=== PATIENT | female | born 1965 | race Caucasian/White ===

== ENCOUNTER 2019-03-13 19:44 | Inpatient (IN) ==
--- NOTE | 2019-03-13 19:51 | Emergency Department Note ---
Disposition Clinical Impression: Catatonia schizophrenia Disposition: Admitted As Inpatient Condition: Fair Time of Disposition: 01:22 Psych HPI - General Stated Complaint: ams Time Seen by Provider: 03/13/19 19:51 Source: family Mode of arrival: ambulatory Limitations: altered mental status Nursing Notes Reviewed: Yes Vital Signs Reviewed: Yes - History of Present Illness HPI Narrative: 53-year-old female past medical history of bipolar disorder and schizophrenia, currently on Lamictal, Seroquel, Abilify presenting for a 3 day history of altered mental status. The patient's mother bedside states that the patient flew to [place] on to see her sister and was noted to be having a "panic attack" at the [place] [facility] prior to flying to [place]. It was noted the patient required to be placed in a wheelchair and loaded onto the airplane which is abnormal for her behaviors. Upon returning to [place], the patient was notably altered and was sent to the [facility] ER for further evaluation and management. Psychiatric labs were performed at [facility] and found to be otherwise unremarkable with the exception of ketones in her urine. The patient was given 50 mg of IM Benadryl due to concerns about catatonic dystonia. Upon my initial evaluation, my general impression is that the patient is awake, alert, as she tracks provider around the room and appears to be consciously and actively flexing her muscles in a rigid posture and resisting movement when attempted range of motion. She gives no verbal response to questioning. There are no overt lateralizing signs, the patient is in no acute distress; their skin appears to be normal in color, she is mildly diaphoretic, not pale, not cyanotic. Pt complaint: altered mental status If medical clearance, reason: psychiatric condition Onset (ago): day(s) Duration: getting worse History of similar episodes: No Improves with: none Worsens with: none Context: significant life stressor Alleged intoxication: No Associated Psychiatric Symptoms: other (Catatonia) - Related Data Home Medications Medication Instructions Recorded Confirmed Abilify 20 mg PO DAILY 03/13/19 03/13/19 Abilify Maintena 400 mg IM Q3W 03/13/19 03/13/19 Acyclovir [Zovirax] 400 mg PO DAILY 03/13/19 03/13/19 Fosamax 35 mg PO DAILY 03/13/19 03/13/19 Klonopin 0.5 mg PO HS PRN 03/13/19 03/13/19 Lamictal 200 mg PO BID 03/13/19 03/13/19 Seroquel 500 mg PO HS 03/13/19 03/13/19 Unable To Obtain [Unable to Obtain] 03/13/19 03/13/19 Allergies Allergy/AdvReac Type Severity Reaction Status Date / Time No Known Allergies Allergy Verified 06/12/15 11:04 Review of Systems: Patient is currently catatonic. Mother states that the patient has not communicated to her any pain, she has not vomited, there is been no abnormal bleeding. Limitations: ROS unobtainable due to patients medical condition Past Medical History - Past Medical History Medical history: Reports: no medical history Psychiatric history: Reports: schizophrenia - Social History Smoking Status: Unknown if ever smoked Smokeless Tobacco Status: No Physical Exam Constitutional: No acute distress Neuro: Patient tracks provider around the room, appears to be actively resisting physical exam. Head: Atraumatic, normocephalic Eyes: Pupils equal, round and reactive to light, no scleral icterus, no conjunc tival injection Neck: Trachea midline without deviation. Anterior neck is supple without swelling. *Chest: Symmetric chest wall rise *Heart: Cardiac rate is tachycardic with normal rhythm with S1 and S2 , no S3 or S4 appreciated, no murmurs, gallops, rubs, or clicks. *Lungs: Lungs are clear to auscultation bilaterally, without accessory muscle use or prolonged expiratory phase. No wheezes, rhonchi or stridor appreciated. Abdomen: Abdomen is flexed, otherwise flat, normal bowel sounds. No abdominal bruit auscultated. Non-distended, non-rigid, no organomegaly, no ascites appreciated. No pulsatile mass, no tenderness or guarding to palpation in all four quadrants, no rebound Extremities: Patient actively flexing 4 extremities as well as abdomen, limbs are rigid to movement Psychiatric exam: Patient is catatonic Integumentary:mild diaphoresis , otherwise warm, dry, intact, normal color. No rash, cyanosis, erythema, or pallor - General Limitations: altered mental status General appearance: alert, in no apparent distress Course Course Narrative: Psychiatric evaluation completed at [place] without significant findings. Concern for psychiatric catatonic reaction versus serotonin syndrome. We will add creatine kinase as well as 1 L fluid for patient hydration and furth er evaluation. Patient is otherwise cleared for psychiatric evaluation. Vital Signs Temperature 98.9 F 03/13/19 19:51 Pulse Rate 121 03/13/19 19:51 Respiratory Rate 16 03/13/19 19:51 Blood Pressure 129/73 03/13/19 19:51 O2 Sat by Pulse Oximetry 97 03/13/19 19:51 Temperature 98.8 F 03/14/19 01:19 Pulse Rate 117 03/14/19 01:19 Respiratory Rate 17 03/14/19 01:19 Blood Pressure 160/76 03/14/19 01:19 O2 Sat by Pulse Oximetry 96 03/14/19 01:19 Oxygen Delivery Oxygen Delivery Room Air Psych - MDM Narrative Medical decision making narrative: Patient evaluate by psychiatric services and deemed appropriate for admission. Patient will be admitted to [facility] psychiatric services for further evaluation and management catatonic schizophrenia. Patient's hemodynamics were stable time of admission. - Lab Data Lab Results 03/13/19 Range/Units 20:40 Creatine Kinase 631 H (30-223) Units/L Psychiatric Medical Clearance - Medical Clearance Checklist Medical History: No Social History Section defined Current Vitals: Last Vital Signs Temp 98.8 F 03/14/19 01:19 Pulse 117 03/14/19 01:19 Resp 17 03/14/19 01:19 BP 160/76 03/14/19 01:19 Pulse Ox 96 03/14/19 01:19 Abnormal Labs: Abnormal lab results Creatine Kinase 631 Units/L (30-223) H 03/13/19 20:40 Statement of Medical Clearance: I have evaluated the patient, reviewed diagnostic information, and certify that the patient's medical condition is sufficiently stable that transfer to the psychiatric unit does not pose a significant risk of deterioration.
[2019-03-13] MEDS ORDERED: 0.9 % Sodium Chloride 1,000 ML IVC ONE (20:07)
--- NOTE | 2019-03-13 20:22 | Emergency Department Note ---
Disposition Clinical Impression: Catatonia schizophrenia Disposition: Admitted As Inpatient Condition: Fair Time of Disposition: 00:55 General Adult HPI - General Chief complaint: ED Psychiatric Symptoms Stated complaint: ams Time Seen by Provider: 03/13/19 19:51 Source: family, EMS Nursing Notes Reviewed: Yes Vital Signs Reviewed: Yes - History of Present Illness Pain Scale: 0 - Related Data Home Medications Medication Instructions Recorded Confirmed Abilify 20 mg PO DAILY 03/13/19 03/13/19 Abilify Maintena 400 mg IM Q3W 03/13/19 03/13/19 Acyclovir [Zovirax] 400 mg PO DAILY 03/13/19 03/13/19 Fosamax 35 mg PO DAILY 03/13/19 03/13/19 Klonopin 0.5 mg PO HS PRN 03/13/19 03/13/19 Lamictal 200 mg PO BID 03/13/19 03/13/19 Seroquel 500 mg PO HS 03/13/19 03/13/19 Unable To Obtain [Unable to Obtain] 03/13/19 03/13/19 Allergies Allergy/AdvReac Type Severity Reaction Status Date / Time No Known Allergies Allergy Verified 06/12/15 11:04 Past Medical History - Past Medical History Medical history: Reports: no medical history Psychiatric history: Reports: bipolar, schizophrenia - Social History Smoking Status: Never smoker Smokeless Tobacco Status: No Course Vital Signs Temperature 98.9 F 03/13/19 19:51 Pulse Rate 121 03/13/19 19:51 Respiratory Rate 16 03/13/19 19:51 Blood Pressure 129/73 03/13/19 19:51 O2 Sat by Pulse Oximetry 97 03/13/19 19:51 Temperature 98.9 F 03/13/19 19:51 Pulse Rate 121 03/13/19 19:51 Respiratory Rate 16 03/13/19 19:51 Blood Pressure 129/73 03/13/19 19:51 O2 Sat by Pulse Oximetry 97 03/13/19 19:51 Oxygen Delivery Oxygen Delivery Room Air Medical Decision Making - Medical Records Medical records reviewed: Yes I reviewed the patient's medical records. - Lab Data Lab results reviewed: Yes I reviewed the patient's lab results. Lab Results 03/13/19 Range/Units 20:40 Creatine Kinase 631 H (30-223) Units/L Lab results from her earlier visit at [facility] emergency Department were reviewed. Attestation Statement - Attestation Attestation: I, Sergio Deleon MD, personally evaluated this patient and discussed their management with the resident physician. I reviewed the resident's note and agree with the documented findings, medical decision making, and plan of care. 33-year-old female with psychiatric history in history of schizophrenia presents to the emergency department with mother reporting that she has had intermittent catatonia and not responding since . It has been worse today and has apparently been present all day. Patient was visiting her sister out of town. They brought her home today and brought her to the emergency department for evaluation. She was seen initially at [facility] emergency department and had psychiatric medical clearance. Please refer to Dr. Salgado's note from [facility] for complete details of the history and physical exam. On examination patient is a well-developed well-nourished female in no acute distress. She is alert and follows me around the room with her eyes but does not respond to questions or commands. She does actively resist when I try to move her arms or legs. Breath sounds are clear and equal bilaterally. Heart regular with a moderate tachycardia. Heart rate at time of my exam was counted at 120. Abdomen is soft with normal bowel sounds. She does mumble unintelligible sounds intermittently. Due to patient's tachycardia and she had ketones greater than 160 and her urinalysis we will give her a bolus of IV fluids before consulted psychiatry. I do agree with Dr. Salgado's impression that this is likely a psychiatric issue. [address] psychiatry department was consulted and evaluated patient in the emergency department. After evaluation patient is being admitted to the [address] psychiatric unit.
[2019-03-14] MEDS ORDERED: Mag Hydrox/Al Hydrox/Simeth 30 ML UDC PO PRN (04:22)
[2019-03-14] MEDS ORDERED: *HR* LORazepam 2 MG/ML VIAL IM PRN (04:22)
[2019-03-14] MEDS ORDERED: traZODone 50 MG TABLET PO PRN (04:22)
[2019-03-14] MEDS ORDERED: Ibuprofen 400 MG TABLET PO PRN (04:22)
[2019-03-14] MEDS ORDERED: Haloperidol Lactate 5 MG/ML VIAL IM PRN (04:22)
[2019-03-14] MEDS ORDERED: hydrOXYzine pamoate 25 MG CAPSULE PO PRN (04:22)
[2019-03-14] MEDS ORDERED: MOM Conc 10 ML UD.LIQ PO PRN (04:22)
[2019-03-14] MEDS ORDERED: *HR* LORazepam 1 MG TABLET PO PRN (04:22)
[2019-03-14] MEDS ORDERED: *HR* LORazepam 2 MG/ML VIAL IM ONE (08:14)
[2019-03-14] MEDS ORDERED: Ringers Solution, Lactated 1,000 ML IVC ONE ×2 (08:47→08:49)
[2019-03-14] MEDS ORDERED: Ringers Solution, Lactated 1,000 ML IVC SCH (09:00)
[2019-03-14] MEDS ORDERED: LAMICTAL 200 MG PO SCH (09:00)
[2019-03-14 09:24] VITALS: BP 110/65
[2019-03-14 09:27] LABS: Basophils % 0.3 %; Eosinophils % 0.1 %; Hematocrit 43.6 % (35.3-44.9); Hemoglobin 14.8 g/dL (11.5-15.4); Immature Granulocytes % 0.6 % (0-4); Lymphocytes # 0.9 K/mcL (0.6-4.6); Lymphocytes % 9.7 %; Mean Corpuscular HGB Conc 33.9 g/dL (31.6-35.5); Mean Corpuscular Hemoglobin 33.8 pg (28.0-33.3); Mean Corpuscular Volume 99.5 fL (83.0-100.0); Mean Platelet Volume 9.6 fL (9.4-12.4); Monocytes # 0.6 K/mcL (0.0-1.3); Neutrophils # 7.9 K/mcL (1.6-8.9); Platelet Count 270 K/mcL (140-400); Red Blood Count 4.38 M/mcL (3.82-4.97); Red Cell Distribution Width 12.4 % (11.5-14.5); Segmented Neutrophils % 83.3 %; White Blood Count 9.5 K/mcL (4.3-11.1)
--- NOTE | 2019-03-14 09:40 | Discharge Summary ---
Date of Encounter: 03/14/19 Time of Encounter: 08:00 Diagnosis - Discharge Diagnosis (1) Catatonia schizophrenia Status: Acute Medications - Discharge Medications Acyclovir [Zovirax] 400 mg PO DAILY 03/13/19 [History] Fosamax 35 mg PO DAILY 03/13/19 [History] Allergy/AdvReac Type Severity Reaction Status Date / Time No Known Allergies Allergy Verified 06/12/15 11:04 Results Procedures and tests throughout hospitalization: Completed Lab Orders Category Date Time Status CBC [Complete Blood Count] [HEME] Stat Lab 03/14/19 09:12 Completed CK [Creatine Kinase] Stat Lab 03/13/19 20:40 Completed Provider Date of admission: 03/14/19 00:43 Primary care physician: Jessie Trevino CNP Discharging clinician: Guera Francisco Psychiatry Exam - Constitutional Vitals: Temp Pulse Resp BP Pulse Ox 98 F 122 16 110/65 94 03/14/19 09:00 03/14/19 09:00 03/14/19 09:00 03/14/19 09:00 03/14/19 09:00 General appearance: unkempt - Musculoskeletal Gait: other (In bed) Station: posturing Strength & Tone: rigid - Psychiatric Patient Orientation: Yes Person (Opens her eyes when her name is called) Level of alertness: Responds to painful stimuli Behavior: withdrawn Psychomotor activity: Catatonic Eye Contact: Maintains Eye Contact Mood Description: Other (Catatonic) Patient description of mood: Catatonic Affect description: flat Speech Volume: No speech Speech pattern: non-verbal Language & Vocabulary: limited Thought Process: Disorganized Thought Content: No Suicidal ideation, No Homicidal ideation Attention Span Ability: Unable to Focus, Unable to Sustain Attention Memory Description: Remote Impaired Patient Reliability: Not Reliable Historian Fund of knowledge: Yes average Intelligence Estimate: Average Judgment: Poor Insight: None Hospital Course Hospital course: Ms. Gleason is a 53 year old female who was admitted from [facility] emergency department. She was seen there for catatonic symptoms. She had been hospitalized recently and was started on Abilify maintain in addition to oral Abilify, Seroquel, Lamictal, and Klonopin. She had flown out to [place] to see her sister but apparently had a "panic attack" in the airport and had to be loaded onto a wheelchair to be placed on the plane which according to family in the emergency room is unlike her. She continued to have deterioration while there and her sister drove her back to [place] where family took her to the [facility] emergency room. She has not been eating or drinking. In the emergency room she required a liter of normal saline. Since she has appeared on our unit she continues to be very catatonic. She is not responding to most commands. She does track with her eyes and grimaces with negative stimuli. She has been incontinent of urine but has had very little output. She is refusing to eat or drink. She appears diaphoretic. Her CK is elevated and she is having some rigidity so NMS is in the differential. We contacted internal medicine who came down and saw her and agreed to admit her medically for her severe dehydration. We did give her one dose of IM Ativan 2 mg while down here with little response. We held her other psychiatric medications Time spent discussing smoking cessation with patient: 3 to 10 minutes Does patient wish to continue nicotine replacement upon disc: No (Not applicable) - Time Spent with Patient Total time spent providing and/or coordinating discharge services: 45 Greater than 30 minutes Specific discharge activities: Spoke directly with the hospitalist attending who will be managing her Assessment and Plan - Patient/Caregiver Discharge Instructions Activity: other Diet: regular diet Additional Instructions: Patient is being admitted medically. Encourage continuing Ativan IM or IV a minimum of 2 mg 3 times a day. If her CK continues to rise or she continues to have the significant lead pipe rigidity neuroleptic malignant syndrome must also be on the differential and dantrolene should be considered for this. Psychiatry will continue to follow. - Follow up Plan Follow up with: Jessie Trevino, [employer]PERATOR [Primary Care Provider] - Functional capacity at discharge: bed bound Overall status at discharge: patient is not back to baseline Disposition: Admitted As Inpatient Quality - Multiple Antipsychotics Patient discharged on 2 or more antipsychotic medications: No Procedures - Procedures Procedures: Medication Management, Crisis Stabilization
[2019-03-14 09:44] LABS: Alanine Aminotransferase 22 Units/L (7-52); Albumin 4.7 g/dL (3.5-5.7); Alkaline Phosphatase 96 Units/L (34-104); Aspartate Amino Transferase 29 Units/L (13-39); BUN/Creatinine Ratio 26 (6-26); Bilirubin,Total 1.1 mg/dL (0.3-1.0); Blood Urea Nitrogen 15 mg/dL (6-20); Calcium 9.8 mg/dL (8.6-10.3); Carbon Dioxide 24 mEq/L (23-29); Chloride 104 mEq/L (98-107); Creatine Kinase 651 Units/L (30-223); Globulin 2.3 g/dL (2.4-3.5); Glucose 100 mg/dL (70-105); Osmolality,Calculated 287 (280-300); Potassium 4.5 mEq/L (3.5-5.1); Sodium 138 mEq/L (136-145); eGFR For African Americans > 60 (> 60); eGFR For Non-African Americans > 60 (> 60)
== END 2019-03-14 10:35 | disposition home or self-care (01) | DRG 885 ==
LOC: 1ANU 19:44 → EMEROOARM 19:44 → OBSVTOIN 03-14 00:43 → 1ANU 03-14 04:08
PROVIDERS: ADMIT Psychiatry & Neurology Psychiatry; ATTEND Psychiatry & Neurology Psychiatry

== ENCOUNTER 2019-03-14 08:50 | Observation (INO) ==
[2019-03-14] MEDS ORDERED: Naloxone 0.4 MG/ML INJ IVP PRN (10:11)
--- NOTE | 2019-03-14 10:11 | Internal Med History&Physical ---
Date of Encounter: 03/14/19 Time of Encounter: 10:30 Internal Medicine - H&P: [facility] History of present illness: Ms. Gleason is a 53 year old female with history of schizophrenia who presents a transfer from inpatient psychiatric unit for medical management of dehydration, elevated CK, and rigidity workup. Patient was recently started on Abilify injection along with PO Abilify and Seroquel. She has developed unusual state of health and possible panic attack and so her family took her to [place] ED. Workup showed elevated CK at 600s with ketones in urine. She was in a catatonic state on arrival to [facility] ED. She was given 1 L normal saline. She was transferred to for further management. Upon arrival to the floor there was concern that NMS could be a cause of symptoms since CK was elevated. Evaluation took place at patient bed in . History obtained from staff and from EMR chart. Patient's current physical and mental status limit evaluation. Past Med Surg Social Fam HX - Past Medical History Medical history: no medical history Additional medical history: unknown/ will not respond Psychiatric history: bipolar, schizophrenia - Past Surgical History Additional surgical history: unknown will not respond - Social History Smoking Status: Never smoker Smokeless Tobacco Status: No Internal Medicine - H&P: Meds Acyclovir [Zovirax] 400 mg PO DAILY 03/13/19 [History] Fosamax 35 mg PO DAILY 03/13/19 [History] Allergy/AdvReac Type Severity Reaction Status Date / Time No Known Allergies Allergy Verified 06/12/15 11:04 ROS unobtainable: due to mental status All Systems PM: A 10-system review of systems was performed and is negative for pertinent findings except as documented above in the HPI. - Constitutional Exam: Exam is limited due to patient in a catatonic state and with rigidity with motion. - Head Head exam: Present: atraumatic, normocephalic - Expanded Head Exam Head exam expanded: Absent: abrasion - Eye Eye exam: Present: PERRL, conjuntiva pink, sclera anicteric Pupils: Present: PERRL - ENT ENT exam: Present: mucous membranes dry - Expanded ENT Exam Mouth exam: Present: dry mucosa. Absent: drooling - Neck Neck exam general surgery: Present: supple, trachea midline. Absent: lymphadenopathy Additional comments: There does not appear to be any neck stiffness and patient is able to do passive range of motion. No appearing nuchal rigidity. Neck flexion is easily performed while patient's back is flexed in bed. - Expanded Neck Exam Neck exam: Absent: tenderness, tracheal deviation - Respiratory Respiratory exam: Present: CTAB. Absent: accessory muscle use, rales, rhonchi, wheezes - Cardiovascular Cardiovascular exam: Present: +S1, +S2, systolic murmur, tachycardia. Absent: diastolic murmur, gallop, rubs - Expanded Cardiovascular Exam Type of murmur: Present: systolic Intensity: 4/6 - GI/Abdominal GI/Abdominal exam: Present: normal bowel sounds, soft, no peritoneal signs. Absent: distended, tenderness - Extremities Exam Extremities exam: Present: warm, radial pulses palpable and symmetrical. Absent: calf tenderness, cyanotic, pedal edema - Back Exam Additional comments: Only partially can be assessed due to patient rigidity. - Neurological Exam Neurological exam: Present: alert. Absent: pronater drift, facial droop, speech deficit Additional comments: Neurology exam could not be fully assessed due to inability to cooperate with muscle flexion as well. There is occasional tracking of eye motion, leading to believe that occular motion is in tact. - Expanded Neurological Exam Neurological exam expanded: Present: protecting the airway - Skin Skin exam: Present: diaphoretic, intact. Absent: dry - Assessment and Plan (1) Muscle rigidity Status: Acute Assessment and plan: Symptoms are likely due to catatonia related to schizophrenia. Serotonin syndrome and NMS are possible as well given her new medication changes. There does not appear to be much nuchal rigidity or tenderness to suggest meningitis. She is afebrile but tachycardic. Her blood pressure is normal and she is afebrile, may be less likely NMS. Lab work for today may result in patient other visit in the EMR. Transfer to telemetry floor CBC, BMP, repeat CK level, UA, lactic acid 2 L normal saline bolus LR Ativan 2 mg Q8H and prn catatonia management per Psychiatry. (2) Catatonia schizophrenia Status: Acute Assessment and plan: Management per Psychiatry. Discussed medication management will include 2 mg Ativan IV Q8HR with close monitoring. (3) Dehydration Status: Acute Assessment and plan: Continue IV fluid hydration. (4) Elevated CK Status: Acute Assessment and plan: Secondary to dehydration, continue IV fluid hydration. (5) Tachycardia Status: Acute Assessment and plan: Suspect component of dehydration. Given her presentation of muscle rigidity, serotonin syndrome and NMS are also possible and will be monitored closely. Does not appear to be infectious etiology. - Continue IV fluid hydration - lopressor prn tachycardia - IV Ativan (6) DVT prophylaxis Status: Acute Assessment and plan: Lovenox SQ - Time Spent With Patient Total time spent is greater than 50% in coordination of care (as documented) at patient's floor/unit and/or counseling patient:
[2019-03-14] MEDS ORDERED: *HR* LORazepam 2 MG/ML VIAL IVP PRN (10:17)
[2019-03-14] MEDS ORDERED: Ringers Solution, Lactated 2,000 ML IVC ONE (10:22)
[2019-03-14 10:56] LABS: Magnesium 2.3 mg/dL (1.6-2.6); Phosphorous 2.6 mg/dL (2.7-4.5)
[2019-03-14] MEDS ORDERED: Ringers Solution, Lactated 3,000 ML ONE (11:05)
[2019-03-14] MEDS ORDERED: *HR* Metoprolol 5 MG/5 ML VIAL IVP PRN (12:18)
--- NOTE | 2019-03-14 14:52 | Consult Note ---
Date of Encounter: 03/14/19 Time of Encounter: 13:00 Assessment & Recommendation (1) Catatonia schizophrenia Current visit: No Status: Acute Assessment & Recommendation: Until presented to the ED because of muscle rigidity. She is afebrile with normal lactate no wall nuchal rigidity. Her CK value was elevated at 631 on admission , is 651 right now -she js s/p 1L LR, along with maintenance fluid at 150mls/hr. - Currently on 2 mg Ativan IV every 8 hours -Catatonic behavior seems to have improved since this morning,. She is alert and oriented to person and place but not to time -Will continue to monitor (2) Elevated CK Current visit: No Status: Acute Assessment & Recommendation: He was found to have a CK of 631 on admission . 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 Gleason is a 53 year old female who was admitted from [place] emergency department. She was seen there for catatonic symptoms. She had been hospitalized recently and was started on Abilify maintain in addition to oral Abilify, Seroquel, Lamictal, and Klonopin. She had flown out to [place] to see her sister but apparently had a "panic attack" in the airport and had to be loaded onto a wheelchair to be placed on the plane which according to family in the emergency room is unlike her. She continued to have deterioration while there and her sister drove her back to [place] where family took her to the [place] emergency room. She has not been eating or drinking. In the emergency room she required a liter of normal saline. Since she has appeared on our unit she continues to be very catatonic. She is not responding to most commands. She does track with her eyes and grimaces with negative stimuli. She has been incontinent of urine but has had very little output. She is refusing to eat or drink. She appears diaphoretic. Her CK is elevated and she is having some rigidity so NMS is in the differential. We contacted internal medicine who came down and saw her and agreed to admit her medically for her severe dehydration. We did give her one dose of IM Ativan 2 mg while down here with little response. We held her other psychiatric medications CC: Nasir Mayo MD Past Med Surg Social Fam HX - Past Medical History Medical history: no medical history - Social History Smoking Status: Never smoker Smokeless Tobacco Status: No Medications & Allergies Acyclovir [Zovirax] 400 mg PO DAILY 03/13/19 [History] Fosamax 35 mg PO DAILY 03/13/19 [History] Allergy/AdvReac Type Severity Reaction Status Date / Time No Known Allergies Allergy Verified 06/12/15 11:04 Review of Systems Constitutional: Denies: fever, chills, weakness, weight change Eyes: Denies: eye pain, vision change Ears, Nose, Throat: Denies: ear pain, throat pain, dental pain, hearing loss, congestion Cardiovascular: Denies: chest pain, palpitations, dyspnea on exertion Respiratory: Denies: cough, dyspnea, wheezes Gastrointestinal: Denies: abdominal pain, nausea, vomiting, diarrhea, constipation Genitourinary female: Denies: urgency, dysuria, frequency, abnormal menses, dyspareunia Musculoskeletal: Denies: joint swelling, joint pain Integumentary: Denies: rash, lesions, pruritus Neurological: Denies: headache, weakness, numbness, memory loss Endocrine: Denies: fatigue, heat or cold intolerance Hematologic/Lymphatic: Denies: easy bruising, lymphadenopathy Allergic/Immunologic: Denies: urticaria, itchy eyes Psychiatry Exam - Constitutional Vitals: Temp Pulse Resp BP Pulse Ox 98.4 F 112 17 145/82 99 03/14/19 12:07 03/14/19 12:07 03/14/19 12:07 03/14/19 12:07 03/14/19 12:07 General appearance: age & developmentally appropriate, well-groomed, well- nourished - Musculoskeletal Gait: normal Station: relaxed Strength & Tone: normal for patient - Psychiatric Patient Orientation: Yes Person, No Time, Yes Place Level of alertness: Alert Behavior: calm, cooperative Psychomotor activity: Normal Eye Contact: Maintains Eye Contact Mood Description: Euthymic/stable Affect description: congruent with mood, full range Speech Volume: Normal Speech pattern: normal rate, normal rhythm, normal tone, fluent, spontaneous Language & Vocabulary: consistent with education Thought Process: Linear, Goal Oriented Thought Content: No Suicidal ideation, No Homicidal ideation, No Overt delusions Perceptual Disturbances: No Auditory hallucinations, No Visual hallucinations Attention Span Ability: Capable of Focused Attention Memory Description: Grossly Intact Patient Reliability: Reliable Historian Fund of knowledge: Yes abstraction ability, Yes aware of current events Intelligence Estimate: Average Judgment: Limited Insight: Partial Results - Labs Labs: Laboratory Last Values Phosphorus 2.6 mg/dL (2.7-4.5) L 03/14/19 09:12 Magnesium 2.3 mg/dL (1.6-2.6) 03/14/19 09:12 Consult Discharge Plan - Plan Referrals: NONE,PCP [Primary Care Provider] -
--- NOTE | 2019-03-14 15:28 | Consult Note ---
Date of Encounter: 03/14/19 Time of Encounter: 11:00 Assessment & Recommendation (1) Catatonia schizophrenia Current visit: No Status: Acute Assessment & Recommendation: Patient presented to the ED because of catatonia. Workup in the ED showed a CK at 631 with ketones in the urine Was given 1 L of normal saline in the ED Currently resuscitated with lactated Ringer's maintenance fluid. Catatonia symptoms seems to have improved since morning Patient on Ativan 2mg q8h and PRN Continue to monitor (2) Elevated CK Current visit: No Status: Acute Assessment & Recommendation: likely due to catatonic schizophrenia Patient was initially the ED with CK of 631 Currently being fluid resuscitated History of Present Illness Requesting Physician: Nasir Mayo MD History of present illness: Ms. Gleason is a 53 year old female who was admitted from [place] emergency department. She was seen there for catatonic symptoms. She had been hospitalized recently and was started on Abilify maintain in addition to oral Abilify, Seroquel, Lamictal, and Klonopin. She had flown out to [place] to see her sister but apparently had a "panic attack" in the airport and had to be loaded onto a wheelchair to be placed on the plane which according to family in the emergency room is unlike her. She continued to have deterioration while there and her sister drove her back to [place] where family took her to the [place] emergency room. She has not been eating or drinking. In the emergency room she required a liter of normal saline. Since she has appeared on our unit she continues to be very catatonic. She is not responding to most commands. She does track with her eyes and grimaces with negative stimuli. She has been incontinent of urine but has had very little output. She is refusing to eat or drink. She appears diaphoretic. Her CK is elevated and she is having some rigidity so NMS is in the differential. We contacted internal medicine who came down and saw her and agreed to admit her medically for her severe dehydration. We did give her one dose of IM Ativan 2 mg while down here with little response. We held her other psychiatric medications CC: Nasir Mayo MD Past Med Surg Social Fam HX - Past Medical History Medical history: no medical history - Social History Smoking Status: Never smoker Smokeless Tobacco Status: No Medications & Allergies Acyclovir [Zovirax] 400 mg PO QAM 03/13/19 [History] Alendronate Sodium [Fosamax] 35 mg PO QWEEK #0 03/13/19 [History] Aripiprazole [Abilify Maintena] 400 mg IM Q3W 03/14/19 [History] Etonogestrel [Nexplanon] 68 mg IM ONCE 03/14/19 [History] Melatonin 3 mg PO HS 03/14/19 [History] Quetiapine Fumarate 400 mg PO HS 03/14/19 [History] Quetiapine Fumarate [Seroquel] 50 mg PO HS 03/14/19 [History] clonazePAM [Klonopin] 0.5 mg PO DAILY PRN 03/14/19 [History] lamoTRIgine [Lamotrigine] 200 mg PO BID 03/14/19 [History] Allergy/AdvReac Type Severity Reaction Status Date / Time diphenhydramine AdvReac See Verified 03/14/19 20:53 [From Dawna] Comments Review of Systems Constitutional: Denies: fever, chills, weakness, weight change Eyes: Denies: eye pain, vision change Ears, Nose, Throat: Denies: ear pain, throat pain, dental pain, hearing loss, congestion Cardiovascular: Denies: chest pain, palpitations, dyspnea on exertion Respiratory: Denies: cough, dyspnea, wheezes Gastrointestinal: Denies: abdominal pain, nausea, vomiting, diarrhea, constipation Genitourinary female: Denies: urgency, dysuria, frequency, abnormal menses, dyspareunia Musculoskeletal: Denies: joint swelling, joint pain Integumentary: Denies: rash, lesions, pruritus Neurological: Denies: headache, weakness, numbness, memory loss Endocrine: Denies: fatigue, heat or cold intolerance Hematologic/Lymphatic: Denies: easy bruising, lymphadenopathy Allergic/Immunologic: Denies: urticaria, itchy eyes Psychiatry Exam - Constitutional Vitals: Temp Pulse Resp BP Pulse Ox 98.4 F 112 17 145/82 99 03/14/19 12:07 03/14/19 12:07 03/14/19 12:07 03/14/19 12:07 03/14/19 12:07 General appearance: age & developmentally appropriate, well-groomed, well- nourished - Musculoskeletal Strength & Tone: rigid - Psychiatric Patient Orientation: Yes Person, No Time, Yes Place Level of alertness: Follows commands Behavior: calm, cooperative Psychomotor activity: Catatonic Eye Contact: Maintains Eye Contact Mood Description: Euthymic/stable Affect description: congruent with mood, full range Speech Volume: Normal Speech pattern: normal rate, normal tone, fluent, spontaneous Language & Vocabulary: consistent with education Thought Process: Linear Thought Content: No Suicidal ideation, No Homicidal ideation, No Overt delusions Perceptual Disturbances: No Auditory hallucinations, No Visual hallucinations Attention Span Ability: Capable of Focused Attention Memory Description: Grossly Intact Patient Reliability: Reliable Historian Fund of knowledge: Yes abstraction ability, Yes aware of current events Intelligence Estimate: Average Judgment: Limited Insight: Partial Results - Labs Labs: Laboratory Last Values Phosphorus 2.6 mg/dL (2.7-4.5) L 03/14/19 09:12 Magnesium 2.3 mg/dL (1.6-2.6) 03/14/19 09:12 Consult Discharge Plan - Plan Referrals: NONE,PCP [Primary Care Provider] - - Attending Attestation I examined this patient and my medical decision-making was reviewed with the Resident Physician. I agree with the documented findings, disposition and treatment plan as described except to the extent set forth below. Currenlty appears catatonic. Do not give home lamictal, seroquel, or abilify. Do not give any antipsychotics. Use scheduled Ativan. If rigidity doesn't improve with Ativan, leukocytosis appears, vitals become unstable or CK worsens consider NMS with dantrolene treatment.
[2019-03-14] MEDS: *HR* LORazepam 2 MG/ML VIAL IVP SCH ×2 (16:14→23:59)
[2019-03-15 05:35] LABS: Basophils % 0.3 %; Eosinophils # 0.1 K/mcL (0.0-0.6); Eosinophils % 1.3 %; Hematocrit 40.6 % (35.3-44.9); Hemoglobin 13.8 g/dL (11.5-15.4); Immature Granulocytes % 0.5 % (0-4); Lymphocytes # 1.9 K/mcL (0.6-4.6); Lymphocytes % 25.8 %; Mean Corpuscular Hemoglobin 34.2 pg (28.0-33.3); Mean Corpuscular Volume 100.7 fL (83.0-100.0); Mean Platelet Volume 9.7 fL (9.4-12.4); Monocytes # 0.7 K/mcL (0.0-1.3); Monocytes % 9.1 %; Neutrophils # 4.7 K/mcL (1.6-8.9); Platelet Count 244 K/mcL (140-400); Red Blood Count 4.03 M/mcL (3.82-4.97); Red Cell Distribution Width 12.4 % (11.5-14.5); White Blood Count 7.4 K/mcL (4.3-11.1)
[2019-03-15 05:44] LABS: BUN/Creatinine Ratio 14 (6-26); Blood Urea Nitrogen 8 mg/dL (6-20); Calcium 9.2 mg/dL (8.6-10.3); Carbon Dioxide 29 mEq/L (23-29); Chloride 101 mEq/L (98-107); Creatine Kinase 714 Units/L (30-223); Glucose 108 mg/dL (70-105); Osmolality,Calculated 281 (280-300); Potassium 3.7 mEq/L (3.5-5.1); Sodium 136 mEq/L (136-145); eGFR For African Americans > 60 (> 60); eGFR For Non-African Americans > 60 (> 60)
[2019-03-15] MEDS ORDERED: Ringers Solution, Lactated 1,000 ML IVC SCH (08:45)
[2019-03-15] MEDS: *HR* LORazepam 2 MG/ML VIAL IVP SCH ×2 (09:56→17:28)
--- NOTE | 2019-03-15 14:21 | Psychiatry Progress Note ---
Date of Encounter: 03/15/19 Time of Encounter: 13:00 Subjective Interval history: patient seen and examined at the bedside. She denies any acute distress. Her catatonia symptoms seems to have improved than yesterday. No evidence of psychosis or delirium. Results - Vital Signs Vital Signs: Temp Pulse Resp BP Pulse Ox 98.2 F 91 16 118/74 96 03/15/19 11:13 03/15/19 11:13 03/15/19 11:13 03/15/19 11:13 03/15/19 11:13 - Labs Labs: Laboratory Results - last 24 hr 03/15/19 03/15/19 04:36 04:36 WBC 7.4 RBC 4.03 Hgb 13.8 Hct 40.6 MCV 100.7 H MCH 34.2 H MCHC 34.0 RDW 12.4 Plt Count 244 MPV 9.7 Immature Gran % 0.5 Seg Neutrophils % 63.0 Lymphocytes % 25.8 Monocytes % 9.1 Eosinophils % 1.3 Basophils % 0.3 Neutrophils # 4.7 Lymphocytes # 1.9 Monocytes # 0.7 Eosinophils # 0.1 Basophils # 0.0 Sodium 136 Potassium 3.7 Chloride 101 Carbon Dioxide 29 BUN 8 Creatinine 0.58 L Est GFR ( Amer) > 60 Est GFR (Non-Af Amer) > 60 BUN/Creatinine Ratio 14 Glucose 108 H Calculated Osmolality 281 Calcium 9.2 Creatine Kinase 714 H Assessment and Plan (1) Catatonia schizophrenia Current visit: Yes Status: Acute Additional Plan: Patient presented to the ED because of catatonia. Workup in the ED showed a CK at 631 with ketones in the urine Was given 1 L of normal saline in the ED Currently resuscitated with lactated Ringer's maintenance fluid. Catatonia symptoms seems to have improved since morning Patient on Ativan 2mg q8h and PRN PLAN: -Recommend tapering off on the Ativan from 2mg q8h to 1.5 mg q8h. - will hold off on antipsychotics. patient can be admitted to the [facility] once medically cleared by the hospitalist service (2) Elevated CK Current visit: Yes Status: Acute Additional Plan: ikely due to catatonic schizophrenia Patient was initially the ED with CK of 631, msot recent is 714. Currently being fluid resuscitated Consult Discharge Plan - Plan Referrals: NONE,PCP [Primary Care Provider] - - Attending Attestation I examined this patient and my medical decision-making was reviewed with the Resident Physician. I agree with the documented findings, disposition and treatment plan as described except to the extent set forth below. Taper Ativan by 0.5mg Q 8hrs every day. We will take her back on 1A once she is medically stable. Thank you very much for your help in managing this patient. Psychiatry Exam - Constitutional Vitals: Temp Pulse Resp BP Pulse Ox 98.2 F 91 16 118/74 96 03/15/19 11:13 03/15/19 11:13 03/15/19 11:13 03/15/19 11:13 03/15/19 11:13 General appearance: age & developmentally appropriate, well-groomed, well- nourished - Musculoskeletal Gait: normal Station: relaxed Strength & Tone: normal for patient - Psychiatric Patient Orientation: Yes Person, Yes Time, Yes Place Level of alertness: Alert Behavior: calm, cooperative Psychomotor activity: Normal Eye Contact: Maintains Eye Contact Mood Description: Euthymic/stable Affect description: congruent with mood, full range Speech Volume: Normal Speech pattern: normal rate, normal rhythm, normal tone, fluent, spontaneous Language & Vocabulary: consistent with education Thought Process: Linear, Goal Oriented Thought Content: No Suicidal ideation, No Homicidal ideation, No Overt delusions Perceptual Disturbances: No Auditory hallucinations, No Visual hallucinations Attention Span Ability: Capable of Focused Attention Memory Description: Grossly Intact Patient Reliability: Reliable Historian Fund of knowledge: Yes abstraction ability, Yes aware of current events Intelligence Estimate: Average Judgment: Limited Insight: Partial
[2019-03-15] MEDS ORDERED: *HR* LORazepam 2 MG/ML VIAL IVP PRN (14:27)
--- NOTE | 2019-03-15 15:43 | Internal Med Progress Note ---
Hospitalist Progress Note - Encounter Date of Encounter: 03/15/19 Time of Encounter: 13:00 - Subjective Interval History: Denies any significant muscle ache. Reports feeling much better overall. Tachycardia resolved, denies any chest pain or palpitation. - Exam Vitals: Temp Pulse Resp BP Pulse Ox 98.2 F 91 16 118/74 96 03/15/19 11:13 03/15/19 11:13 03/15/19 11:13 03/15/19 11:13 03/15/19 11:13 Exam: General: Alert and oriented, not in acute distress. Cardiovascular:Normal S1 & S2, No JVD. Pulse regular. Lungs: clear to auscultation, no wheezes/rales Abdomen:Soft, non-tender, no rigidity. Extremities:No deformity or swelling. No muscle tenderness Neurological: Non-focal Psych: Appropriate - Assessment and Plan (1) Catatonia schizophrenia Current Visit: Yes Status: Acute Assessment and Plan: Management with ativan per psych, antipsychotics on hold (2) Elevated CK Current Visit: Yes Status: Acute Assessment and Plan: most likely due to the above but was brought to the medical floor as NMS was in the differential CPK largely unchanged despite IVF but pt clinically improved will increase the rate of mIVF and monitor if CPK < 500, may be able to be discharged back to [facility] tomorrow (3) DVT prophylaxis Current Visit: No Status: Acute Assessment and Plan: pt is ambulatory, EPCD - Time Spent with Patient Total time spent is greater than 50% in coordination of care (as documented) at patient's floor/unit and/or counseling patient: 25 - 35 minutes Plan of Care Discussed with: nurse (discussed with psych as well) Internal Medicine: Result - Labs CBC & Chem 7: 03/15/19 04:36 03/15/19 04:36 Labs: Short CBC 03/15/19 Range/Units 04:36 WBC 7.4 (4.3-11.1) K/mcL Hgb 13.8 (11.5-15.4) g/dL Hct 40.6 (35.3-44.9) % Plt Count 244 (140-400) K/mcL Neutrophils # 4.7 (1.6-8.9) K/mcL BMP 03/15/19 04:36 Sodium 136 Potassium 3.7 Chloride 101 Carbon Dioxide 29 BUN 8 Creatinine 0.58 L Glucose 108 H Calcium 9.2 Consult Discharge Plan - Plan Referrals: NONE,PCP [Primary Care Provider] -
[2019-03-15] MEDS: Ringers Solution, Lactated 1,000 ML IVC SCH (17:51)
[2019-03-15] MEDS ORDERED: Melatonin 3 MG TABLET PO SCH (21:00)
[2019-03-16] MEDS: *HR* LORazepam 2 MG/ML VIAL IVP SCH ×2 (01:29→09:40)
[2019-03-16] MEDS: Ringers Solution, Lactated 1,000 ML IVC SCH ×3 (01:31→06:01)
[2019-03-16 06:22] LABS: BUN/Creatinine Ratio 15 (6-26); Blood Urea Nitrogen 8 mg/dL (6-20); Calcium 9.3 mg/dL (8.6-10.3); Carbon Dioxide 28 mEq/L (23-29); Chloride 103 mEq/L (98-107); Creatine Kinase 482 Units/L (30-223); Glucose 99 mg/dL (70-105); Osmolality,Calculated 280 (280-300); Potassium 3.9 mEq/L (3.5-5.1); Sodium 136 mEq/L (136-145); eGFR For African Americans > 60 (> 60); eGFR For Non-African Americans > 60 (> 60)
[2019-03-16 08:13] LABS: Bilirubin,Urine Negative (Negative); Blood,Urine Negative (Negative); Clarity,Urine Clear (Clear); Color,Urine Yellow (Yellow); Glucose,Urine (UA) Normal (Normal); Ketones,Urine Negative (Negative); Leukocyte Esterase,Urine Negative (Negative); Nitrite,Urine Negative (Negative); PH,Urine 7.5 pH Units (5.0-8.0); Protein,Urine Negative (Neg-Trace); Urobilinogen,Urine Normal (Normal)
[2019-03-16] MEDS ORDERED: Acyclovir 200 MG CAPSULE PO SCH (09:00)
--- NOTE | 2019-03-16 10:31 | Discharge Summary ---
Date of Encounter: 03/16/19 Time of Encounter: 10:28 - Discharge Diagnosis (1) Catatonia schizophrenia Priority: Primary Status: Acute (2) Elevated CK Priority: Primary Status: Acute Hospital course: Ms. Gleason is a 53 year old female with past medical history of schizophrenia was transferred from psychiatric unit due to elevated CPK and dehydration. Patient was recently started on Abilify and Seroquel. She was transferred with concern for NMS. Patient had muscle rigidity on admission thought likely due to catatonic schizophrenia. She was started on IV fluids for elevated CPK. Psychiatric consult was obtained and she was kept on IV Ativan while her home psychiatric medications were held. Patient has been stable for past 2 days without any psychosis or catatonia. CPK improved with IV fluids. Patient able to tolerate by mouth fluids and food. Patient is stable to be discharged to inpatient psychiatric facility. We will defer to psychiatrist to resume her psychiatric medications. Discharge discussed with: patient, nurse - Time Spent with Patient Total time spent providing and/or coordinating discharge services: Time spent: Greater than 30 minutes (35) - Discharge Medications Prescriptions: Continued Acyclovir [Zovirax] 400 mg PO QAM Alendronate Sodium [Fosamax] 35 mg PO QWEEK #0 Etonogestrel [Nexplanon] 68 mg IM ONCE Melatonin 3 mg PO HS Discontinued clonazePAM [Klonopin] 0.5 mg PO DAILY PRN PRN Reason: Anxiety Aripiprazole [Abilify Maintena] 400 mg IM Q3W lamoTRIgine [Lamotrigine] 200 mg PO BID Quetiapine Fumarate [Seroquel] 50 mg PO HS Quetiapine Fumarate 400 mg PO HS Home Medications: Acyclovir [Zovirax] 400 mg PO QAM 03/13/19 [History] Alendronate Sodium [Fosamax] 35 mg PO QWEEK #0 03/13/19 [History] Etonogestrel [Nexplanon] 68 mg IM ONCE 03/14/19 [History] Melatonin 3 mg PO HS 03/14/19 [History] Allergies/Adverse Reactions: Allergy/AdvReac Type Severity Reaction Status Date / Time diphenhydramine AdvReac See Verified 03/14/19 20:53 [From Benadryl] Comments Date of admission: 03/14/19 11:10 Primary care physician: PCP NONE Consults: 03/15/19 12:26 Consult to Psychiatry [CONS] Routine Consulting Provider: [facility] Reason consult: Other Other reason and/or additional details: catatonia Discharging clinician: Benton Clarke - Constitutional Vitals: Temp Pulse Resp BP Pulse Ox 98.5 F 86 16 137/79 99 03/16/19 07:12 03/16/19 07:12 03/16/19 07:12 03/16/19 07:12 03/16/19 07:12 Exam: General: In no acute distress. Respiratory exam: CTAB. no accessory muscle use, rales, rhonchi, wheezes Cardiovascular exam: RRR, +S1, +S2. no murmur, gallop, rubs. GI/Abdominal exam: Non-tender, Non-distended, normal bowel sounds, soft, no peritoneal signs. Extremities exam: no pedal edema, pulses palpable in b/l lower extremities. no calf tenderness Neurological exam: CN II-XII intact, AO X3, no focal deficits. Skin exam: No skin rash - Patient Status Disposition: Transfer Psychiatric Hosp Condition: Fair - Discharge Instructions Follow Up With: NONE,PCP [Primary Care Provider] -
[2019-03-16 12:30] VITALS: BP 112/69
== END 2019-03-16 14:30 ==
LOC: 2ANU → SUATTDRO 11:10
PROVIDERS: ADMIT Student in an Organized Health Care Education/Training Program; ATTEND Internal Medicine

== ENCOUNTER 2019-03-16 15:09 | Inpatient (IN) ==
[2019-03-16] MEDS ORDERED: NON-FORMULARY MEDICATION 1 EACH EACH (Alendronate Sodium [Fosamax] 35 MG) PO SCH (17:30)
[2019-03-16] MEDS ORDERED: Etonogestrel 68 MG IMPLANT IL SCH (17:30)
[2019-03-16] MEDS ORDERED: *HR* LORazepam 1 MG TABLET PO PRN (17:33)
[2019-03-16] MEDS ORDERED: hydrOXYzine pamoate 25 MG CAPSULE PO PRN (17:33)
[2019-03-16] MEDS ORDERED: Mag Hydrox/Al Hydrox/Simeth 30 ML UDC PO PRN (17:33)
[2019-03-16] MEDS ORDERED: Haloperidol Lactate 5 MG/ML VIAL IM PRN (17:33)
[2019-03-16] MEDS ORDERED: traZODone 50 MG TABLET PO PRN (17:33)
[2019-03-16] MEDS ORDERED: Acetaminophen 325 MG TABLET PO PRN (17:33)
[2019-03-16] MEDS ORDERED: MOM Conc 10 ML UD.LIQ PO PRN (17:33)
[2019-03-16] MEDS ORDERED: *HR* LORazepam 2 MG/ML VIAL IM PRN (17:33)
[2019-03-16] MEDS: *HR* LORazepam 1 MG TABLET PO SCH ×2 (18:39→21:20)
[2019-03-16] MEDS: Melatonin 3 MG TABLET PO SCH (21:20)
[2019-03-17] MEDS: Acyclovir 200 MG CAPSULE PO SCH (08:36)
[2019-03-17] MEDS: *HR* LORazepam 1 MG TABLET PO SCH ×3 (10:02→21:42)
--- NOTE | 2019-03-17 11:11 | Psychiatry History & Physical ---
Date of Encounter: 03/17/19 Time of Encounter: 09:00 History of Present Illness Patient Stated Chief Complaint: catatonia Medicare Admission Attestation: For traditional Medicare patients the provided hospital inpatient services are reasonable and necessary and in the case of services not specified as inpatient-only under 42 CFR 419.22 (n), that they are appropriately provided as inpatient services in accordance 42 CFR 412.3. For Critical Access Hospital the patient may reasonably be expected to be discharged or transferred to a hospital within 96 hours after admission to the Critical Access Hospital. Admitted From: Intrahospital Transfer Plans for Post Hospital Care: Home History of Present Illness: Ms. Gleason is a 53 year old female patient initially presented to the emergency room on March 14 for catatonic symptoms. She had traveled to [place] to see her sister and had a panic attack in the emergency room on the way there she had to be escorted by wheelchair onto the plane. Her mental status continued to deteriorate while she was in [place] and eventually she became unresponsive and her sister drove her back to [place] when she was brought to the emergency room. She was initially admitted to but she was acutely dehydrated and had elevated CK and had lead pipe rigidity. There was concern of NMS. She was transferred medically and started on scheduled Ativan as well as and her psychiatric medications were held. She improved greatly and she has since been transferred back to the psychiatric unit. Today she is somewhat distressed about the fact that she cannot recall large periods of time. She is no longer having acute catatonic symptoms though she does have some mild thought blocking. She reports depression with sad mood, decreased interest, feelings of guilt and worthlessness to staff. He has been tearful and anxious. Past Med Surg Social Fam HX - Past Medical History Medical history: diabetes - Past Psychiatric History Psychiatric history: Reports: schizophrenia, previous psychiatric hospitalization. Denies: prior suicide attempt Past psychiatric history details: She has no prior history of suicide attempts. She is. See been diagnosed with schizoaffective disorder. She has had several psychiatric hospitalizations in the past. She was on Seroquel 500 at night Lamictal 200 twice a day Abilify maintenance injection which originally thought was a new medication however she says she has been on this for years as well as Abilify 20 mg at night and Klonopin 0.5 mg at bedtime when necessary anxiety. She says her medications have not recently been changed. Family psychiatric history: No Family History of Suicide: None - Past Surgical History Surgical History: no surgical history - Social History Smoking Status: Never smoker Smokeless Tobacco Status: No Alcohol use: none Drug use: none Medications & Allergies Acyclovir [Zovirax] 400 mg PO QAM 03/13/19 [History] Alendronate Sodium [Fosamax] 35 mg PO QWEEK #0 03/13/19 [History] Etonogestrel [Nexplanon] 68 mg IM ONCE 03/14/19 [History] Melatonin 3 mg PO HS 03/14/19 [History] Allergy/AdvReac Type Severity Reaction Status Date / Time diphenhydramine AdvReac See Verified 03/14/19 20:53 [From Dawna] Comments Review of Systems Constitutional: Reports: chills Eyes: Denies: eye pain Ears, Nose, Throat: Denies: ear pain Cardiovascular: Denies: chest pain Respiratory: Denies: cough Gastrointestinal: Denies: abdominal pain Genitourinary female: Denies: urgency Musculoskeletal: Reports: joint pain Integumentary: Denies: rash Neurological: Reports: confusion, memory loss Psychiatric: Reports: depression, anxiety, suicidal ideation, auditory hallucinations. Denies: homicidal ideation, visual hallucinations Endocrine: Reports: fatigue Hematologic/Lymphatic: Denies: easy bleeding Allergic/Immunologic: Denies: facial swelling Exam - HEENT Head exam IM: Present: atraumatic Eye exam IM: Present: EOMI ENT exam IM: Present: mucous membranes moist - Neurological Neurological exam: Present: CN II-XII intact (Grossly) - Respiratory Respiratory exam IM: Absent: respiratory distress - GI/Abdominal GI/Abdominal exam IM: Present: no peritoneal signs - Extremities Extremities exam IM: Present: full ROM - Skin Skin exam IM: Absent: abrasion - Constitutional Vitals: Temp Pulse Resp BP Pulse Ox 98.3 F 112 14 100/57 95 03/17/19 08:36 03/17/19 08:36 03/17/19 08:36 03/17/19 08:36 03/17/19 08:36 General appearance: age & developmentally appropriate - Musculoskeletal Gait: slow Station: stooped Strength & Tone: normal for patient - Psychiatric Patient Orientation: Yes Person, Yes Time, Yes Place, Yes Circumstance Level of alertness: Alert Behavior: cooperative, nervous Psychomotor activity: Slowed Eye Contact: Minimal Contact Mood Description: Depressed, Anxious Patient description of mood: Worried Affect description: blunted Speech Volume: Soft/Quiet Speech pattern: slowed Language & Vocabulary: consistent with education Thought Process: Thought Blocking Thought Content: No Suicidal ideation, No Homicidal ideation, Yes Paranoid delusion Perceptual Disturbances: Yes Auditory hallucinations Attention Span Ability: Capable of Focused Attention Memory Description: Grossly Intact Patient Reliability: Reliable Historian Fund of knowledge: Yes abstraction ability Intelligence Estimate: Average Judgment: Limited Insight: Minimal Results - Drug Levels and Toxicology Drug Levels and Toxicology: Lab Results 03/17/19 Range/Units 09:27 POC Glucose 191 H (70-99) mg/dL - Labs Labs: Laboratory Last Values POC Glucose 191 mg/dL (70-99) H 03/17/19 09:27 Assessment and Plan (1) Catatonia schizophrenia Current visit: No Status: Acute Plan: Admit inpatient for safety and stabilization, Close observation, Suicide Precautions per unit protocol, Encourage participation in unit milieu, Group Therapy, Monitor sleep, Monitor appetite Additional Plan: Patient has been titrated down to Ativan 1 mg 3 times a day. We will continue to titrate this down to 0.5 3 times a day. I will begin restarting some of her home psychiatric medications that she is starting to become more depressed and t earful without them. I will restart the Lamictal to 200 twice a day as she has only been off this for a few doses. I will restart the Seroquel more slowly at 200 at bedtime to try not to precipitate another catatonic episode. I will hold off on the oral Abilify for now. She still has the Abilify maintain on board. Encourage group attendance. Therapist to work on discharge planning. Risks, benefits, side effects, alternatives discussed w/pt: Yes Patient agreeable to treatment: Yes Plans for Post Hospital Care: Home Estimated Length of Stay (Days): 5
[2019-03-17 14:29] LABS: Basophils % 0.2 %; Eosinophils % 0.5 %; Hematocrit 41.9 % (35.3-44.9); Hemoglobin 14.9 g/dL (11.5-15.4); Immature Granulocytes % 0.5 % (0-4); Lymphocytes # 1.4 K/mcL (0.6-4.6); Mean Corpuscular HGB Conc 35.6 g/dL (31.6-35.5); Mean Corpuscular Hemoglobin 34.1 pg (28.0-33.3); Mean Corpuscular Volume 95.9 fL (83.0-100.0); Mean Platelet Volume 9.7 fL (9.4-12.4); Monocytes # 0.7 K/mcL (0.0-1.3); Monocytes % 7.6 %; Neutrophils # 6.4 K/mcL (1.6-8.9); Platelet Count 265 K/mcL (140-400); Red Blood Count 4.37 M/mcL (3.82-4.97); Red Cell Distribution Width 12.2 % (11.5-14.5); Segmented Neutrophils % 75.2 %; White Blood Count 8.5 K/mcL (4.3-11.1)
[2019-03-17 14:50] LABS: Alanine Aminotransferase 27 Units/L (7-52); Albumin 4.5 g/dL (3.5-5.7); Albumin/Globulin Ratio 1.8 (1.1-2.2); Alkaline Phosphatase 87 Units/L (34-104); Aspartate Amino Transferase 24 Units/L (13-39); BUN/Creatinine Ratio 21 (6-26); Bilirubin,Total 0.7 mg/dL (0.3-1.0); Blood Urea Nitrogen 12 mg/dL (6-20); Calcium 9.8 mg/dL (8.6-10.3); Carbon Dioxide 30 mEq/L (23-29); Chloride 98 mEq/L (98-107); Chol/HDL Ratio 2.3 (0-4.9); Cholesterol 180 mg/dL (< 200); Globulin 2.5 g/dL (2.4-3.5); Glucose 142 mg/dL (70-105); HDL Cholesterol 79 mg/dL (40-59); LDL Cholesterol,Calculated 88 mg/dL (0-99); Osmolality,Calculated 278 (280-300); Potassium 3.9 mEq/L (3.5-5.1); Sodium 133 mEq/L (136-145); Triglycerides 65 mg/dL (< 150); eGFR For African Americans > 60 (> 60); eGFR For Non-African Americans > 60 (> 60)
[2019-03-17 15:02] LABS: Thyroid Stimulating Hormone 1.259 mcIU/mL (0.340-5.600)
[2019-03-17 15:04] LABS: Estimated Average Glucose 103 mg/dl
[2019-03-17] MEDS: Melatonin 3 MG TABLET PO SCH (21:42)
[2019-03-17] MEDS: lamoTRIgine 100 MG TABLET PO SCH (22:23)
[2019-03-18] MEDS: *HR* LORazepam 1 MG TABLET PO SCH ×3 (10:50→21:16)
[2019-03-18] MEDS: lamoTRIgine 100 MG TABLET PO SCH ×2 (10:51→21:53)
[2019-03-18] MEDS: Acyclovir 200 MG CAPSULE PO SCH (10:51)
--- NOTE | 2019-03-18 10:54 | Psychiatry Progress Note ---
Date of Encounter: 03/18/19 Time of Encounter: 10:20 Subjective Interval history: Patient reports she is feeling better. She has tolerated getting back on Lamictal and the Seroquel. No side effects. No return of stiffness or confusion. She continues to have some mild auditory hallucinations as well as some paranoia and anxiety. She is particularly anxious about the days of memory she has lost. She says that she is somewhat down but no suicidal ideations. She has attended some groups. Review of Systems Psychiatric: Reports: depression, anxiety, auditory hallucinations. Denies: homicidal ideation, visual hallucinations Results - Vital Signs Vital Signs: Temp Pulse Resp BP Pulse Ox 98.2 F 93 18 124/81 96 03/17/19 20:42 03/17/19 20:42 03/17/19 20:42 03/17/19 20:42 03/17/19 20:42 - Labs Labs: Laboratory Results - last 24 hr 03/17/19 03/17/19 03/17/19 12:22 12:22 12:22 WBC 8.5 RBC 4.37 Hgb 14.9 Hct 41.9 MCV 95.9 MCH 34.1 H MCHC 35.6 H RDW 12.2 Plt Count 265 MPV 9.7 Immature Gran % 0.5 Seg Neutrophils % 75.2 Lymphocytes % 16.0 Monocytes % 7.6 Eosinophils % 0.5 Basophils % 0.2 Neutrophils # 6.4 Lymphocytes # 1.4 Monocytes # 0.7 Eosinophils # 0.0 Basophils # 0.0 Sodium 133 L Potassium 3.9 Chloride 98 Carbon Dioxide 30 H BUN 12 Creatinine 0.57 L Est GFR ( Amer) > 60 Est GFR (Non-Af Amer) > 60 BUN/Creatinine Ratio 21 Glucose 142 H Est Mean Plasma Glucose Hemoglobin A1c Calculated Osmolality 278 L Calcium 9.8 Total Bilirubin 0.7 AST 24 ALT 27 Alkaline Phosphatase 87 Serum Total Protein 7.0 Albumin 4.5 Globulin 2.5 Albumin/Globulin Ratio 1.8 Triglycerides 65 Cholesterol 180 LDL Cholesterol, Calc 88 VLDL Cholesterol, Calc 13 HDL Cholesterol 79 H Cholesterol/HDL Ratio 2.3 TSH 1.259 T.pallidum Ab Interpret Negative 03/17/19 14:11 WBC RBC Hgb Hct MCV MCH MCHC RDW Plt Count MPV Immature Gran % Seg Neutrophils % Lymphocytes % Monocytes % Eosinophils % Basophils % Neutrophils # Lymphocytes # Monocytes # Eosinophils # Basophils # Sodium Potassium Chloride Carbon Dioxide BUN Creatinine Est GFR ( Amer) Est GFR (Non-Af Amer) BUN/Creatinine Ratio Glucose Est Mean Plasma Glucose 103 Hemoglobin A1c 5.2 Calculated Osmolality Calcium Total Bilirubin AST ALT Alkaline Phosphatase Serum Total Protein Albumin Globulin Albumin/Globulin Ratio Triglycerides Cholesterol LDL Cholesterol, Calc VLDL Cholesterol, Calc HDL Cholesterol Cholesterol/HDL Ratio TSH T.pallidum Ab Interpret Assessment and Plan (1) Catatonia schizophrenia Current visit: No Status: Acute Plan: Continue hospitalization, Close observation, Suicide Precautions per unit protocol, Encourage participation in unit milieu, Group Therapy, Monitor sleep, Monitor appetite Additional Plan: Increase Seroquel back to her home dose of 500 mg daily at bedtime. Continue Ativan at 0.5 mg 3 times a day. Encourage group attendance. Will see how she does with this and consider if I am going to restart her oral Abilify or not. Risks, benefits, side effects, alternatives discussed w/pt: Yes Patient agreeable to treatment: Yes Consult Discharge Plan - Plan Referrals: [facility] [Outside] Psychiatry Exam - Constitutional Vitals: Temp Pulse Resp BP Pulse Ox 98.2 F 93 18 124/81 96 03/17/19 20:42 03/17/19 20:42 03/17/19 20:42 03/17/19 20:42 03/17/19 20:42 General appearance: disheveled - Musculoskeletal Gait: slow Station: stooped Strength & Tone: normal for patient - Psychiatric Patient Orientation: Yes Person, Yes Time, Yes Place, Yes Circumstance Level of alertness: Alert Behavior: guarded Psychomotor activity: Slowed Eye Contact: Minimal Contact Mood Description: Depressed, Anxious Patient description of mood: Worried Affect description: tearful, anxious Speech Volume: Soft/Quiet Speech pattern: slowed Language & Vocabulary: consistent with education Thought Process: Slowed Thinking Thought Content: No Suicidal ideation, No Homicidal ideation, No Overt delusions Perceptual Disturbances: Yes Auditory hallucinations, No Visual hallucinations Attention Span Ability: Capable of Focused Attention Memory Description: Grossly Intact Patient Reliability: Reliable Historian Fund of knowledge: Yes abstraction ability, Yes aware of current events Intelligence Estimate: Average Judgment: Limited Insight: Minimal
[2019-03-18] MEDS: Melatonin 3 MG TABLET PO SCH (21:17)
--- NOTE | 2019-03-19 09:03 | Psychiatry Progress Note ---
Date of Encounter: 03/19/19 Time of Encounter: 08:20 Subjective Interval history: Patient reports she is more optimistic. She still is really dwelling on the days that she cannot remember and becomes tearful every time she talks about this. She tolerated the increase of her Seroquel back to her home dose without any reoccurrence of stiffness or catatonia. She appears somewhat watchful on the unit. She has been able to talk more about her past history and that no medications were changed prior to her coming in that she been on her current dose of medications for quite some time however she did not eat well and was in the heat so this may have contributed. Additionally she was able to discuss that her past diagnosis is always been bipolar disorder and never schizophrenia. Review of Systems Psychiatric: Reports: depression, anxiety. Denies: homicidal ideation, visual hallucinations Results - Vital Signs Vital Signs: Temp Pulse Resp BP Pulse Ox 98.4 F 101 20 121/78 98 03/18/19 21:00 03/18/19 21:00 03/18/19 21:00 03/18/19 21:00 03/18/19 21:00 Assessment and Plan (1) Bipolar I disorder with catatonia Current visit: Yes Status: Acute Plan: Continue hospitalization, Close observation, Suicide Precautions per unit protocol, Encourage participation in unit milieu, Group Therapy, Monitor sleep, Monitor appetite Additional Plan: Patient's diagnosis changed to bipolar disorder with catatonia based on her deejay ng now able to tell us about her past history and the symptoms she has had in the past as well as past diagnoses. We will continue her current medications. We will see how she does tomorrow and then make a decision about re-adding the Abilify oral or not. We will likely look at Thursday for discharge and she is willing to stay at her parents house for a bit. Risks, benefits, side effects, alternatives discussed w/pt: Yes Patient agreeable to treatment: Yes Consult Discharge Plan - Plan [facility] [Outside] Psychiatry Exam - Constitutional Vitals: Temp Pulse Resp BP Pulse Ox 98.4 F 101 20 121/78 98 03/18/19 21:00 03/18/19 21:00 03/18/19 21:00 03/18/19 21:00 03/18/19 21:00 General appearance: age & developmentally appropriate, obese - Musculoskeletal Gait: slow Station: stooped Strength & Tone: mild weakness - Psychiatric Patient Orientation: Yes Person, Yes Time, Yes Place, Yes Circumstance Level of alertness: Alert Behavior: nervous Psychomotor activity: Slowed Eye Contact: Minimal Contact Mood Description: Anxious Patient description of mood: Worried Affect description: congruent with mood Speech Volume: Soft/Quiet Speech pattern: slowed Language & Vocabulary: consistent with education Thought Process: Perseveration Thought Content: No Suicidal ideation, No Homicidal ideation, Yes Paranoid delusion Perceptual Disturbances: No Auditory hallucinations, No Visual hallucinations Attention Span Ability: Capable of Focused Attention Memory Description: Grossly Intact Patient Reliability: Reliable Historian Fund of knowledge: Yes abstraction ability, Yes aware of current events Intelligence Estimate: Average Judgment: Fair Insight: Partial
[2019-03-19] MEDS: lamoTRIgine 100 MG TABLET PO SCH ×2 (10:18→21:06)
[2019-03-19] MEDS: Acyclovir 200 MG CAPSULE PO SCH (10:18)
[2019-03-19] MEDS: *HR* LORazepam 1 MG TABLET PO SCH ×3 (10:18→21:13)
[2019-03-19] MEDS: Melatonin 3 MG TABLET PO SCH (21:05)
--- NOTE | 2019-03-20 09:58 | Psychiatry Progress Note ---
Date of Encounter: 03/20/19 Time of Encounter: 09:00 Subjective Interval history: Patient is doing very well. She is very future oriented. No suicidal or homicidal thoughts. She is doing well back on all of her medications with the exception of the oral Abilify. I did talk with her about holding this medication for now but that she and her outpatient doctor can work to see if this needs to be readmitted in the future but given that she has IM long acting Abilify on board she can continue just that and the Seroquel and Lamictal. She has some mild anxiety about going home particularly because she recently found out there was a picture on Facebook of her being held down in the wheelchair at the airport but she is positive about this and plans to work with her outpatient team regarding it. Review of Systems Psychiatric: Reports: anxiety. Denies: homicidal ideation, visual hallucinations Results - Vital Signs Vital Signs: Temp Pulse Resp BP Pulse Ox 98.7 F 111 20 124/64 99 03/19/19 21:00 03/19/19 21:00 03/19/19 21:00 03/19/19 21:00 03/19/19 21:00 Assessment and Plan (1) Bipolar I disorder with catatonia Current visit: Yes Status: Acute Plan: Continue hospitalization, Close observation, Suicide Precautions per unit protocol, Encourage participation in unit milieu, Group Therapy, Monitor sleep, Monitor appetite Additional Plan: She should be ready for discharge tomorrow. I will further titrate down her Ativan to 0.5 twice a day today. And then she can likely be discharged with just 0.5 at at bedtime. Continue other medications. Risks, benefits, side effects, alternatives discussed w/pt: Yes Patient agreeable to treatment: Yes Consult Discharge Plan - Plan Additional Instructions: Mrs. Gleason is back on all of her home medications with the exception of the oral Abilify. At this time she and I have discussed holding off on restarting this until she sees her outpatient provider and they can see if she really needs it. She seems to be doing well right now with the long-acting intramuscular Abilify she has on board, the Seroquel, the Lamictal, and the Ativan so it is possible she will not need to be restarted on this however if she does have any worsening of her mood, depression, or psychosis she and her outpatient provider can work on slowly restarting this. [facility]errals: [facility] [facility]Outside] [facility] [Outside] Psychiatry Exam - Constitutional Vitals: Temp Pulse Resp BP Pulse Ox 98.7 F 111 20 124/64 99 03/19/19 21:00 03/19/19 21:00 03/19/19 21:00 03/19/19 21:00 03/19/19 21:00 General appearance: age & developmentally appropriate, well-groomed - Musculoskeletal Gait: normal Station: relaxed Strength & Tone: normal for patient - Psychiatric Patient Orientation: Yes Person, Yes Time, Yes Place, Yes Circumstance Level of alertness: Alert, Other Behavior: calm, cooperative Psychomotor activity: Normal Eye Contact: Maintains Eye Contact Mood Description: Euthymic/stable, Anxious Patient description of mood: I am a little worried because their pictures of me on [employer]. Affect description: congruent with mood, full range Speech Volume: Normal Speech pattern: normal rate, normal rhythm, normal tone, fluent, spontaneous Language & Vocabulary: consistent with education Thought Process: Linear, Goal Oriented Thought Content: No Suicidal ideation, No Homicidal ideation, No Overt delusions Perceptual Disturbances: No Auditory hallucinations, No Visual hallucinations Attention Span Ability: Capable of Focused Attention Memory Description: Grossly Intact Patient Reliability: Reliable Historian Fund of knowledge: Yes abstraction ability, Yes aware of current events Intelligence Estimate: Average Judgment: Good Insight: Full
[2019-03-20] MEDS: *HR* LORazepam 1 MG TABLET PO SCH ×4 (10:06→21:30)
[2019-03-20] MEDS: Acyclovir 200 MG CAPSULE PO SCH (10:07)
[2019-03-20] MEDS: lamoTRIgine 100 MG TABLET PO SCH ×2 (10:07→21:31)
[2019-03-20] MEDS: Melatonin 3 MG TABLET PO SCH (21:31)
[2019-03-21] MEDS: *HR* LORazepam 1 MG TABLET PO SCH (08:41)
[2019-03-21] MEDS: lamoTRIgine 100 MG TABLET PO SCH (08:41)
[2019-03-21] MEDS: Acyclovir 200 MG CAPSULE PO SCH (08:41)
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
[2019-03-21 12:08] VITALS: BP 107/68
== END 2019-03-21 12:59 | disposition home or self-care (01) | DRG 885 ==
LOC: 1ANU 15:09 → SUATTDRO 15:09 → INTOOBSV 15:09
PROVIDERS: ADMIT Psychiatry & Neurology Psychiatry; ATTEND Psychiatry & Neurology Psychiatry

== ENCOUNTER 2020-02-04 22:48 | Inpatient (IN) ==
[2020-02-04 23:50] LABS: Bilirubin,Urine Negative (Negative); Blood,Urine Moderate (Negative); Clarity,Urine Clear (Clear); Color,Urine Colorless (Yellow); Glucose,Urine (UA) Normal (Normal); Ketones,Urine Negative (Negative); Leukocyte Esterase,Urine Negative (Negative); Nitrite,Urine Negative (Negative); PH,Urine 6.5 pH Units (5.0-8.0); Protein,Urine Negative (Neg-Trace); RBC,Urine 0-3 per hpf (0-3); Specific Gravity,Urine 1.005 (1.010-1.025); Squamous Epithelial Cell,Urine Few per hpf (None-Few); Urobilinogen,Urine Normal (Normal); WBC,Urine 0-3 per hpf (0-3)
[2020-02-05 00:01] LABS: Amphetamine Screen,Urine Negative ng/mL (Cutoff=1000); Barbiturate Screen,Urine Negative ng/mL (Cutoff=200); Benzodiazepines Screen,Urine Positive ng/mL (Cutoff=200); Cannabinoid Screen,Urine Negative ng/mL (Cutoff = 50); Cocaine Screen,Urine Negative ng/mL (Cutoff= 300); Opiate Screen,Urine Negative ng/mL (Cutoff=300); Phencyclidine Screen,Urine Negative ng/mL (Cutoff=25)
[2020-02-05 00:20] LABS: Basophils % 0.2 %; Eosinophils % 0.1 %; Hematocrit 35.5 % (35.3-44.9); Hemoglobin 12.1 g/dL (11.5-15.4); Immature Granulocytes % 0.3 % (0-4); Lymphocytes # 2.1 K/mcL (0.6-4.6); Lymphocytes % 23.1 %; Mean Corpuscular HGB Conc 34.1 g/dL (31.6-35.5); Mean Corpuscular Hemoglobin 33.4 pg (28.0-33.3); Mean Corpuscular Volume 98.1 fL (83.0-100.0); Mean Platelet Volume 9.8 fL (9.4-12.4); Monocytes # 0.9 K/mcL (0.0-1.3); Monocytes % 10.2 %; Platelet Count 225 K/mcL (140-400); Red Blood Count 3.62 M/mcL (3.82-4.97); Red Cell Distribution Width 12.2 % (11.5-14.5); Segmented Neutrophils % 66.1 %; White Blood Count 9.1 K/mcL (4.3-11.1)
[2020-02-05 00:25] LABS: Acetaminophen < 10 mcg/mL (10-20); BUN/Creatinine Ratio 18 (6-26); Blood Urea Nitrogen 11 mg/dL (6-20); Calcium 9.4 mg/dL (8.6-10.3); Carbon Dioxide 26 mEq/L (23-29); Chloride 100 mEq/L (98-107); Ethanol < 10 mg/dL (Less than 10); Glucose 115 mg/dL (70-105); Osmolality,Calculated 280 (280-300); Potassium 3.5 mEq/L (3.5-5.1); Salicylate < 2.5 mg/dL (15.0-30.0); Sodium 135 mEq/L (136-145); eGFR For African Americans > 60 (> 60); eGFR For Non-African Americans > 60 (> 60)
[2020-02-05] MEDS ORDERED: Mag Hydrox/Al Hydrox/Simeth 30 ML UDC PO PRN (02:16)
[2020-02-05] MEDS ORDERED: Haloperidol Lactate 5 MG/ML VIAL IM PRN (02:16)
[2020-02-05] MEDS ORDERED: hydrOXYzine pamoate 25 MG CAPSULE PO PRN (02:16)
[2020-02-05] MEDS ORDERED: *HR* LORazepam 2 MG/ML VIAL IM PRN (02:16)
[2020-02-05] MEDS ORDERED: MOM Conc 10 ML UD.LIQ PO PRN (02:16)
[2020-02-05] MEDS: QUEtiapine Fumarate 25 MG TABLET PO PRN ×2 (02:32→03:41)
[2020-02-05] MEDS: *HR* LORazepam 1 MG TABLET PO PRN (03:40)
[2020-02-05] MEDS: haloperidoL 5 MG TABLET PO PRN (03:41)
[2020-02-05] MEDS: lamoTRIgine 100 MG TABLET PO SCH ×2 (10:24→20:12)
[2020-02-05] MEDS: *HR* LORazepam 0.5 MG TABLET PO SCH ×3 (10:25→20:12)
[2020-02-05] MEDS: Acyclovir 200 MG CAPSULE PO SCH (10:33)
[2020-02-05] MEDS: Melatonin 3 MG TABLET PO SCH (20:12)
[2020-02-05] MEDS ORDERED: QUEtiapine Fumarate 100 MG TABLET PO SCH ×2 (21:00)
[2020-02-05] MEDS ORDERED: QUEtiapine Fumarate 25 MG TABLET PO SCH (21:00)
[2020-02-06] MEDS: lamoTRIgine 100 MG TABLET PO SCH ×2 (08:40→21:17)
[2020-02-06] MEDS: Acyclovir 200 MG CAPSULE PO SCH (08:41)
[2020-02-06] MEDS: *HR* LORazepam 0.5 MG TABLET PO SCH ×3 (08:41→21:17)
[2020-02-06] MEDS: *HR* LORazepam 1 MG TABLET PO PRN ×3 (10:11→23:50)
[2020-02-06] MEDS: haloperidoL 5 MG TABLET PO PRN ×3 (10:11→23:50)
[2020-02-06] MEDS: Acetaminophen 325 MG TABLET PO PRN ×2 (15:43→21:19)
[2020-02-06] MEDS: QUEtiapine Fumarate 300 MG TABLET PO SCH (21:17)
[2020-02-06] MEDS: Melatonin 3 MG TABLET PO SCH (21:17)
[2020-02-07] MEDS: *HR* LORazepam 0.5 MG TABLET PO SCH ×3 (08:51→20:42)
[2020-02-07] MEDS: Acyclovir 200 MG CAPSULE PO SCH (08:51)
[2020-02-07] MEDS: lamoTRIgine 100 MG TABLET PO SCH ×2 (08:51→20:42)
[2020-02-07] MEDS: Acetaminophen 325 MG TABLET PO PRN (08:53)
[2020-02-07] MEDS: QUEtiapine Fumarate 300 MG TABLET PO SCH (20:43)
[2020-02-07] MEDS: Melatonin 3 MG TABLET PO SCH (20:43)
[2020-02-07] MEDS: haloperidoL 5 MG TABLET PO PRN (23:15)
[2020-02-07] MEDS: *HR* LORazepam 1 MG TABLET PO PRN (23:15)
[2020-02-08 08:22] VITALS: BP 114/62
[2020-02-08] MEDS: Acyclovir 200 MG CAPSULE PO SCH (08:33)
[2020-02-08] MEDS: *HR* LORazepam 0.5 MG TABLET PO SCH ×2 (08:33→14:59)
[2020-02-08] MEDS: lamoTRIgine 100 MG TABLET PO SCH (08:33)
[2020-02-08] MEDS: Acetaminophen 325 MG TABLET PO PRN (10:28)
[2020-02-08] MEDS ORDERED: QUEtiapine Fumarate 25 MG TABLET PO SCH (21:00)
[2020-02-08] MEDS ORDERED: QUEtiapine Fumarate 100 MG TABLET PO SCH (21:00)
[2020-02-08] MEDS ORDERED: QUEtiapine Fumarate 300 MG TABLET PO SCH (21:00)
== END 2020-02-08 16:05 | disposition home or self-care (01) | DRG 885 ==
LOC: EMEROOARM 22:48 → SUATTDRO 02-05 02:11 → 1ANU 02-05 02:11
PROVIDERS: ADMIT Psychiatry & Neurology Psychiatry; ATTEND Psychiatry & Neurology Psychiatry

== ENCOUNTER 2021-11-02 15:41 | Inpatient (IN) ==
[2021-11-02] MEDS ORDERED: 0.9 % Sodium Chloride 1,000 ML IVC SCH (18:15)
[2021-11-02] MEDS ORDERED: Naloxone 0.4 MG/ML INJ IVP PRN (19:16)
[2021-11-02] MEDS ORDERED: *HR* LORazepam 0.5 MG TABLET PO PRN (20:53)
[2021-11-02] MEDS ORDERED: QUEtiapine Fumarate 100 MG TABLET PO SCH (21:00)
[2021-11-02] MEDS ORDERED: lamoTRIgine 100 MG TABLET PO SCH (21:00)
[2021-11-02] MEDS: Melatonin 3 MG TABLET PO PRN (22:03)
[2021-11-02] MEDS: Sodium Bicarbonate 50 MEQ in 0.45 % Sodium Chloride 1,000 ML IVC SCH (22:03)
[2021-11-03 02:23] LABS: Basophils % 0.1 %; Eosinophils % 0.4 %; Hematocrit 37.9 % (35.3-44.9); Hemoglobin 13.6 g/dL (11.5-15.4); Immature Granulocytes % 0.3 % (0-4); Lymphocytes # 2.5 K/mcL (0.6-4.6); Lymphocytes % 24.2 %; Mean Corpuscular HGB Conc 35.9 g/dL (31.6-35.5); Mean Corpuscular Hemoglobin 35.2 pg (28.0-33.3); Mean Corpuscular Volume 98.2 fL (83.0-100.0); Mean Platelet Volume 10.2 fL (9.4-12.4); Monocytes # 0.8 K/mcL (0.0-1.3); Neutrophils # 6.8 K/mcL (1.6-8.9); Platelet Count 167 K/mcL (140-400); Red Blood Count 3.86 M/mcL (3.82-4.97); Red Cell Distribution Width 12.6 % (11.5-14.5); White Blood Count 10.1 K/mcL (4.3-11.1)
[2021-11-03 02:41] LABS: Alanine Aminotransferase 134 Units/L (7-52); Albumin 3.6 g/dL (3.5-5.7); Alkaline Phosphatase 64 Units/L (34-104); Aspartate Amino Transferase 407 Units/L (13-39); BUN/Creatinine Ratio 25 (6-26); Blood Urea Nitrogen 17 mg/dL (6-20); Calcium 8.4 mg/dL (8.6-10.3); Carbon Dioxide 25 mEq/L (23-29); Chloride 102 mEq/L (98-107); Globulin 1.8 g/dL (2.4-3.5); Glucose 102 mg/dL (70-105); Magnesium 2.1 mg/dL (1.6-2.6); Osmolality,Calculated 280 (280-300); Phosphorous 2.7 mg/dL (2.7-4.5); Potassium 3.8 mEq/L (3.5-5.1); Sodium 134 mEq/L (136-145); Total Protein 5.4 g/dL (6.4-8.9); eGFR For African Americans > 60 (> 60); eGFR For Non-African Americans > 60 (> 60)
[2021-11-03] MEDS: Sodium Bicarbonate 50 MEQ in 0.45 % Sodium Chloride 1,000 ML IVC SCH (04:04)
[2021-11-03] MEDS ORDERED: 0.9 % Sodium Chloride 1,000 ML IVC SCH (05:15)
[2021-11-03 05:19] LABS: Acetaminophen < 10 mcg/mL (10-20)
[2021-11-03] MEDS: *HR* Heparin 5,000 UNIT/ML VIAL SQ SCH ×2 (05:32→16:51)
[2021-11-03 07:18] LABS: Chol/HDL Ratio 2.1 (0-4.9)
[2021-11-03 08:38] LABS: Hepatitis B Surface Antigen Nonreactive (Nonreactive)
[2021-11-03 09:06] LABS: Hepatitis B Core IgM Nonreactive (Nonreactive)
[2021-11-03 09:07] LABS: Hepatitis C Virus Antibody Nonreactive (Nonreactive)
[2021-11-03 09:08] LABS: Hepatitis A Antibody IgM Nonreactive (Nonreactive)
[2021-11-03] MEDS: 0.9 % Sodium Chloride 1,000 ML IVC SCH ×2 (17:23→21:49)
[2021-11-03] MEDS: lamoTRIgine 100 MG TABLET PO SCH (21:48)
[2021-11-03] MEDS: *HR* LORazepam 1 MG TABLET PO SCH (21:48)
[2021-11-03] MEDS: Melatonin 3 MG TABLET PO PRN (21:53)
[2021-11-04] MEDS ORDERED: *HR* LORazepam 2 MG/ML VIAL IVP ONE (01:12)
[2021-11-04] MEDS: 0.9 % Sodium Chloride 1,000 ML IVC SCH ×4 (04:40→21:20)
[2021-11-04 04:57] LABS: Hematocrit 34.1 % (35.3-44.9); Mean Corpuscular HGB Conc 34.6 g/dL (31.6-35.5); Mean Corpuscular Hemoglobin 34.1 pg (28.0-33.3); Mean Corpuscular Volume 98.6 fL (83.0-100.0); Mean Platelet Volume 10.2 fL (9.4-12.4); Platelet Count 142 K/mcL (140-400); Red Blood Count 3.46 M/mcL (3.82-4.97); Red Cell Distribution Width 12.4 % (11.5-14.5); White Blood Count 5.5 K/mcL (4.3-11.1)
[2021-11-04 05:01] LABS: Hemoglobin 11.8 g/dL (11.5-15.4)
[2021-11-04] MEDS: *HR* Heparin 5,000 UNIT/ML VIAL SQ SCH ×2 (05:12→18:27)
[2021-11-04 05:40] LABS: Alanine Aminotransferase 142 Units/L (7-52); Albumin 3.5 g/dL (3.5-5.7); Albumin/Globulin Ratio 1.9 (1.1-2.2); Alkaline Phosphatase 56 Units/L (34-104); Aspartate Amino Transferase 331 Units/L (13-39); BUN/Creatinine Ratio 12 (6-26); Bilirubin,Total 0.8 mg/dL (0.3-1.0); Blood Urea Nitrogen 7 mg/dL (6-20); Calcium 8.3 mg/dL (8.6-10.3); Carbon Dioxide 29 mEq/L (23-29); Chloride 106 mEq/L (98-107); Creatine Kinase > 20000 Units/L (30-223); Globulin 1.8 g/dL (2.4-3.5); Glucose 87 mg/dL (70-105); Osmolality,Calculated 283 (280-300); Sodium 138 mEq/L (136-145); Total Protein 5.3 g/dL (6.4-8.9); eGFR For African Americans > 60 (> 60); eGFR For Non-African Americans > 60 (> 60)
[2021-11-04] MEDS: lamoTRIgine 100 MG TABLET PO SCH ×2 (09:26→21:20)
[2021-11-04] MEDS: *HR* LORazepam 1 MG TABLET PO SCH (09:26)
[2021-11-04] MEDS ORDERED: QUEtiapine Fumarate 100 MG TABLET PO SCH (21:00)
[2021-11-04] MEDS ORDERED: NON-FORMULARY MEDICATION 1 EACH EACH (Quetiapine Fumarate [Seroquel] 50 MG Tablet) PO SCH (21:00)
[2021-11-05] MEDS: 0.9 % Sodium Chloride 1,000 ML IVC SCH ×2 (01:26→06:19)
[2021-11-05] MEDS: *HR* LORazepam 1 MG TABLET PO PRN ×2 (01:28→08:18)
[2021-11-05] MEDS: *HR* Heparin 5,000 UNIT/ML VIAL SQ SCH (06:19)
[2021-11-05 06:36] LABS: Alanine Aminotransferase 147 Units/L (7-52); Albumin 3.7 g/dL (3.5-5.7); Albumin/Globulin Ratio 1.9 (1.1-2.2); Alkaline Phosphatase 61 Units/L (34-104); Aspartate Amino Transferase 279 Units/L (13-39); BUN/Creatinine Ratio 10 (6-26); Bilirubin,Total 0.7 mg/dL (0.3-1.0); Blood Urea Nitrogen 6 mg/dL (6-20); Calcium 9.2 mg/dL (8.6-10.3); Carbon Dioxide 29 mEq/L (23-29); Chloride 105 mEq/L (98-107); Globulin 1.9 g/dL (2.4-3.5); Glucose 88 mg/dL (70-105); Osmolality,Calculated 285 (280-300); Sodium 139 mEq/L (136-145); Total Protein 5.6 g/dL (6.4-8.9); eGFR For African Americans > 60 (> 60); eGFR For Non-African Americans > 60 (> 60)
[2021-11-05] MEDS: lamoTRIgine 100 MG TABLET PO SCH (08:18)
[2021-11-05] MEDS ORDERED: Aspirin 81 MG TAB.CHEW PO SCH (09:00)
[2021-11-05 09:59] VITALS: BP 119/67; PULSE 95; TEMP 97.7; O2SAT 95
== END 2021-11-05 12:35 | disposition home or self-care (01) | DRG 885 ==
LOC: EMEROOARM 15:41 → 3ANU 15:41
PROVIDERS: ADMIT Student in an Organized Health Care Education/Training Program; ATTEND Student in an Organized Health Care Education/Training Program

== ENCOUNTER 2021-11-10 14:53 | Inpatient (IN) ==
[2021-11-10 16:04] LABS: Bilirubin,Urine Negative (Negative); Blood,Urine Negative (Negative); Clarity,Urine Clear (Clear); Color,Urine Yellow (Yellow); Glucose,Urine (UA) Normal (Normal); Ketones,Urine >150 mg/dL (Negative); Leukocyte Esterase,Urine Negative (Negative); Mucus,Urine Few per lpf (None-Few); Nitrite,Urine Negative (Negative); Protein,Urine 100 mg/dL (Neg-Trace); RBC,Urine 0-3 per hpf (0-3); Specific Gravity,Urine 1.028 (1.010-1.025); Urobilinogen,Urine Normal (Normal); WBC,Urine 0-3 per hpf (0-3)
[2021-11-10 16:13] LABS: Amphetamine Screen,Urine Negative ng/mL (Cutoff=1000); Barbiturate Screen,Urine Negative ng/mL (Cutoff=200); Benzodiazepines Screen,Urine Negative ng/mL (Cutoff=200); Cannabinoid Screen,Urine Negative ng/mL (Cutoff = 50); Cocaine Screen,Urine Negative ng/mL (Cutoff= 300); Opiate Screen,Urine Negative ng/mL (Cutoff=300); Phencyclidine Screen,Urine Negative ng/mL (Cutoff=25)
[2021-11-10] MEDS ORDERED: *HR* LORazepam 2 MG/ML VIAL IM ONE (17:17)
[2021-11-10 20:11] LABS: Influenza A PCR Negative (Negative); Influenza B PCR Negative (Negative); Resp. Syncytial Virus PCR Negative (Negative)
[2021-11-10 20:14] LABS: SARS-CoV-2 by PCR (In House) Negative (Negative)
[2021-11-10] MEDS ORDERED: Ibuprofen 400 MG TABLET PO PRN (22:02)
[2021-11-10] MEDS ORDERED: Haloperidol Lactate 5 MG/ML VIAL IM PRN (22:02)
[2021-11-10] MEDS ORDERED: *HR* LORazepam 2 MG/ML VIAL IM PRN (22:02)
[2021-11-10] MEDS ORDERED: haloperidoL 5 MG TABLET PO PRN (22:02)
[2021-11-10] MEDS ORDERED: *HR* LORazepam 1 MG TABLET PO PRN (22:02)
[2021-11-10] MEDS ORDERED: QUEtiapine Fumarate 25 MG TABLET PO PRN (22:02)
[2021-11-10] MEDS: lamoTRIgine 100 MG TABLET PO SCH (23:16)
[2021-11-10] MEDS: *HR* LORazepam 1 MG TABLET PO SCH (23:16)
[2021-11-10] MEDS: QUEtiapine Fumarate 100 MG TABLET PO SCH (23:16)
[2021-11-11] MEDS: lamoTRIgine 100 MG TABLET PO SCH ×2 (08:48→20:51)
[2021-11-11] MEDS: *HR* LORazepam 1 MG TABLET PO SCH ×2 (08:49→20:51)
[2021-11-11] MEDS: Aspirin 81 MG TAB.CHEW PO SCH (11:05)
[2021-11-11] MEDS ORDERED: MOM Conc 10 ML UD.LIQ PO PRN (12:30)
[2021-11-11] MEDS ORDERED: Mag Hydrox/Al Hydrox/Simeth 30 ML UDC PO PRN (12:30)
[2021-11-11] MEDS ORDERED: QUEtiapine Fumarate 25 MG TABLET PO ONE (12:45)
[2021-11-11] MEDS: QUEtiapine Fumarate 100 MG TABLET PO SCH (20:51)
[2021-11-11] MEDS: Melatonin 3 MG TABLET PO SCH (20:52)
[2021-11-11] MEDS ORDERED: QUEtiapine Fumarate 100 MG TABLET PO SCH (21:00)
[2021-11-11] MEDS ORDERED: QUEtiapine Fumarate 25 MG TABLET PO SCH (21:00)
[2021-11-12] MEDS: lamoTRIgine 100 MG TABLET PO SCH ×2 (08:31→21:45)
[2021-11-12] MEDS: *HR* LORazepam 1 MG TABLET PO SCH ×2 (08:31→21:46)
[2021-11-12] MEDS: Aspirin 81 MG TAB.CHEW PO SCH (08:31)
[2021-11-12] MEDS: QUEtiapine Fumarate 25 MG TABLET PO SCH (08:32)
[2021-11-12] MEDS ORDERED: QUEtiapine Fumarate 25 MG TABLET PO ONE (12:13)
[2021-11-12] MEDS: Melatonin 3 MG TABLET PO SCH (21:45)
[2021-11-12] MEDS: QUEtiapine Fumarate 100 MG TABLET PO SCH (21:45)
[2021-11-13] MEDS: QUEtiapine Fumarate 25 MG TABLET PO SCH (08:55)
[2021-11-13] MEDS: Aspirin 81 MG TAB.CHEW PO SCH (08:55)
[2021-11-13] MEDS: lamoTRIgine 100 MG TABLET PO SCH (08:55)
[2021-11-13] MEDS: *HR* LORazepam 1 MG TABLET PO SCH (08:55)
[2021-11-13 09:03] VITALS: BP 112/53; PULSE 108; TEMP 98; O2SAT 99
== END 2021-11-13 13:45 | disposition home or self-care (01) | DRG 885 ==
LOC: 1ANU 14:53 → EMEROOARM 14:53 → 1ANU 23:05
PROVIDERS: ADMIT Psychiatry & Neurology Psychiatry; ATTEND Psychiatry & Neurology Psychiatry